=== PATIENT | female | born 1950 | race Caucasian/White ===

== ENCOUNTER → 2023-10-15 13:57 | Outpatient (REF) | payer MEDICARE, OTHER, SELFPAY | LOC: RAD 13:57 | PROVIDERS: ATTENDING PHYSICIAN Family Medicine | DX: E78.00 Pure hypercholesterolemia, unspecified (principal) | CPT/HCPCS: 75571 ==

== ENCOUNTER → 2023-12-28 13:10 | Outpatient (REF) | payer MEDICARE, OTHER, SELFPAY | LOC: RAD 13:10 | PROVIDERS: ATTENDING PHYSICIAN Family Medicine | DX: R09.81 Nasal congestion (principal); I77.810 Thoracic aortic ectasia | CPT/HCPCS: 70487; 71275; Q9967 ==

== ENCOUNTER → 2024-01-10 11:00 | Outpatient (REF) | payer MEDICARE, OTHER, SELFPAY | LOC: CLAB 11:00 | PROVIDERS: ATTENDING PHYSICIAN Otolaryngology | DX: J32.3 Chronic sphenoidal sinusitis (principal) | CPT/HCPCS: 87070; 87205 ==

== ENCOUNTER → 2024-01-26 16:54 | Outpatient (REF) | payer MEDICARE, OTHER, SELFPAY | LOC: RCS 16:54 | PROVIDERS: ATTENDING PHYSICIAN Family Medicine | DX: I77.810 Thoracic aortic ectasia (principal); R01.1 Cardiac murmur, unspecified | CPT/HCPCS: 93306 ==

== ENCOUNTER → 2024-02-18 12:05 | Outpatient (REF) | payer MEDICARE, OTHER, SELFPAY ==
[2024-02-18 12:45] LABS: % Basophils 0.5 % (0-2); % Eosinophils 5.9 % (0-6); % Immature Granulocytes 0.1 % (0-0.5); % Lymphocytes 12.4 % (20.5-51.1); % Monocytes 6.3 % (1.7-9.3); % Neutrophils 74.8 % (42.2-75.2); Absolute Eosinophils 0.5 10^3/uL (0-0.7); Absolute Monocytes 0.5 10^3/uL (0.1-0.6); Absolute Neutrophils 5.8 10^3/uL (1.4-6.5); Hematocrit 38.2 % (37.0-47.0); Hemoglobin 13.2 g/dL (12.0-16.0); Mean Corp Hgb Conc. 34.6 g/dL (33.0-37.0); Mean Corpuscular Hgb 29.9 pg (27.0-31.0); Mean Corpuscular Volume 86.4 fL (81.0-99.0); Mean Platelet Volume 10.7 fL (7.4-10.4); Nucleated Red Blood Cells % 0 %; Platelet Count 364 10^3/uL (130-400); Red Blood Cell Count 4.42 10^6/uL (4.20-5.40); White Blood Cell Count 7.8 10^3/uL (4.8-10.8)
[2024-02-18 14:20] LABS: ALT (SGPT) 59 U/L (0-35); AST (SGOT) 44 U/L (14-36); Albumin 4.1 g/dl (3.5-5.0); Alkaline Phosphatase 117 U/L (38-126); Blood Urea Nitrogen 19 mg/dl (7-17); Calcium 9.7 mg/dl (8.4-10.2); Carbon Dioxide 28 mmol/L (22-30); Chloride 92 mmol/L (98-107); Glucose 96 mg/dl (70-99); Potassium 4.4 mmol/L (3.5-5.1); Sodium 133 mmol/L (135-145); Total Bilirubin 0.6 mg/dl (0.2-1.3); Total Protein 7.7 g/dl (6.3-8.2); eGFR > 60.00
== END ==
LOC: REG 12:05
PROVIDERS: ATTENDING PHYSICIAN Family Medicine
DX: J32.3 Chronic sphenoidal sinusitis (principal); R11.0 Nausea; M79.10 Myalgia, unspecified site
CPT/HCPCS: 36415; 80053; 85025

== ENCOUNTER → 2024-02-29 08:28 | Outpatient (REF) | payer MEDICARE, OTHER, SELFPAY ==
[2024-02-29 12:06] LABS: ALT (SGPT) 36 U/L (0-35); AST (SGOT) 36 U/L (14-36); Albumin 4.5 g/dl (3.5-5.0); Alkaline Phosphatase 90 U/L (38-126); Blood Urea Nitrogen 22 mg/dl (7-17); Calcium 9.4 mg/dl (8.4-10.2); Carbon Dioxide 29 mmol/L (22-30); Chloride 93 mmol/L (98-107); Glucose 83 mg/dl (70-99); HDL Cholesterol 95 mg/dl; LDL Cholesterol, Calculated 88 mg/dl; Potassium 5.1 mmol/L (3.5-5.1); Sodium 134 mmol/L (135-145); Total Bilirubin 1.2 mg/dl (0.2-1.3); Total Cholesterol 198 mg/dl (50-199); Total Protein 8.2 g/dl (6.3-8.2); Triglyceride 77 mg/dl (10-149); Very Low Density Lipoprotein 15 mg/dl (0-30); eGFR > 60.00
== END ==
LOC: REG 08:28
PROVIDERS: ATTENDING PHYSICIAN Family Medicine
DX: E78.00 Pure hypercholesterolemia, unspecified (principal); R74.8 Abnormal levels of other serum enzymes
CPT/HCPCS: 36415; 80053; 80061

== ENCOUNTER → 2024-06-27 14:50 | Outpatient (REF) | payer MEDICARE, OTHER, SELFPAY | LOC: WDC 14:50 | PROVIDERS: ATTENDING PHYSICIAN Family Medicine | DX: Z12.31 Encounter for screening mammogram for malignant neoplasm of breast (principal) | CPT/HCPCS: 77063; 77067 ==

== ENCOUNTER 2024-08-10 11:03 | Emergency (ER) | payer MEDICARE, OTHER, SELFPAY ==
[2024-08-10 11:07] VITALS: BP 191/108
[2024-08-10 13:00] VITALS: BP 187/88
--- NOTE | 2024-08-10 13:10 | ED.GENMED ---
History of Present Illness
General
Chief Complaint: Extremity Pain (non-traumatic)
Source: patient
Exam Limitations: none
Time Seen by Provider: 08/10/24 12:19
Nursing documentation reviewed up to this point in time: agreed with
History of Present Illness
History of Present Illness:
Patient is a 74 old female who presents to the ER complaining of stiffness of the left knee. She had this knee replaced [address] Hadley .
She reports for the past several weeks/2 months she has had some stiffness of the left knee and cracking when she gets up from a chair however today discomfort was more increased. She also has had some left calf discomfort yesterday. Denies any
obvious swelling. denies redness /fever/chills.
Past History
Past History
ED Past Medical History: HTN
Social History
Tobacco: Non-smoker
Alcohol: None
Drug: None
Review of Systems
Review of Systems
Allergies reviewed?: Yes
All Other Systems: ROS reviewed and negative except as documented in HPI and ROS
Musculoskeletal: Reports other (left knee pain )
Skin: Reports no symptoms
Neurological: Reports no symptoms
Psychiatric: Reports no symptoms
Phy Exam
General Physical Exam
General Presentation: no apparent distress
General age: appears stated age
General Skin: warm and dry
General Habitus: normal
General Mental: alert
General Hydration: appears well hydrated
Neurological Exam
Neurological Exam: alert and oriented x3
Musculoskeletal Exam
Musculoskeletal Exam: other (lle with strong pulses no obvious swelling /erythema to knee or leg full ROM; no calf tenderness or swelling no erythema to calf + strong pulses compartments soft )
Skin Exam
Skin Exam: normal color and warm/dry
Psychiatric Exam
Psychiatric Exam: normal mood/affect
Course
Orders/Labs/Results
Orders:
Orders
08/10/24 11:10
Knee, Left 4 or More Views [CR Knee - Left 4 Or More View*] Urgent
Comment:
Reason For Exam: pain
08/10/24 13:13
Acetaminophen [Tylenol] 650 mg PO NOW STA
Venous Doppler Lwr Ext Left [US Periph Venous LOWER Ext LT] Urgent
Comment:
Reason For Exam: calf pain
Vital Signs
Initial and Last Documented VS:
Initial Vital Signs
Temp Pulse Resp BP Pulse Ox
98.2 F 75 18 191/108 98
08/10/24 11:07 08/10/24 11:07 08/10/24 11:07 08/10/24 11:07 08/10/24 11:07
Last Documented Vital Signs
Temp Pulse Resp BP Pulse Ox
99.5 F 80 20 157/100 97
08/10/24 15:00 08/10/24 15:00 08/10/24 15:00 08/10/24 15:00 08/10/24 15:00
MDM/Problems Addressed
Differential Diagnosis Includes:
less likely DVT knee sprain/strain
MDM/Problems Addressed:
No evidence of infection on exam strong pulses patient complains of increasing stiffness for the past 1- 2 months in the knee mild left calf discomfort today. no fevers /no redness on exam no c/o of fevers at home. X-ray is negative for fracture
there is small to moderate joint effusion no evidence of infection on exam we will check ultrasound and if negative plan to DC with Ortho follow-up.
Ultrasound is negative for DVT of the left extremity there is a hypoechoic collection left calf musculature likely complex cystic likely representing hematoma. No acute concerning findings on exam will DC with outpatient felt her orthopedic
physician discussed ice and alternating ibuprofen and Tylenol. Patient is bearing weight using a cane to assist.
*Radiology
Radiology exam reviewed: radiology read reviewed
*Pulse Oximetry
Patient hypoxic: no
*Critical Care Note
Total Time (30-74mins, 75-104mins- exclusive of procedures): Not Applicable
ED Attending Note
-
Portions of this chart may have been created with voice recognition software.� Occasional wrong word or��sound alike� substitutions may have occurred due to the inherent limitations of voice recognition software.
Discharge Plan
Departure
Patient Disposition: Home (Routine Discharge)
Date of Disposition: 08/10/24
Time of Disposition: 15:33
Patient with high blood pressure during this ER visit?: Yes
Condition: Fair
Covid-19: Not Applicable
Discharge Problem:
knee pain
Instructions: Knee pain - ED discharge instructions, BLOOD PRESSURE
Prescriptions:
No Action
citalopram 10 MG tablet
15 mg PO DAILY
kxdbmxnugk-eapkaibob-ahbjrcsoq [Exforge HCT] 1 EACH tablet
1 ea PO DAILY
vancomycin HCl in water 1.25 GM/12.5 ML solution
1.25 gm IV Q12H Qty: 14 0RF
ceftriaxone 2,000 MG/20 ML recon soln
2,000 mg IV DAILY Qty: 6 0RF
metronidazole 500 MG tablet
500 mg PO TID Qty: 18 0RF
Referrals:
Donato Hadley MD [Non-Admitting Privileges] -
Roseline Lauren MD [Family Provider] -
Activity Restrictions/Additional Instructions:
As discussed please keep elevated as much as possible.
You may take ibuprofen for discomfort alternate with Tylenol.
Please follow-up with your orthopedic doctor as soon as possible and return if any worsening of symptoms.
Interventions
Interventions:
*Risk Screen - Suicide Last Done: 08/10/24 11:07
*General Assessment Last Done: 08/10/24 11:07
*Neglect/Abuse Screening Last Done: 08/10/24 11:07
*ED- Fall Risk Assessment Last Done: 08/10/24 11:07
*ED COVID-19 Vaccine History Last Done: 08/10/24 11:07
*Nursing Disposition Last Done: 08/10/24 15:45
ED-Skin Assessment Last Done: 08/10/24 13:00
ED-Peripheral Vascular Assessment Last Done: 08/10/24 13:00
ED-Musculoskeletal Assessment Last Done: 08/10/24 13:00
Discharge Date and Time
Discharge Date/Time: 08/10/24 15:46
Print Language: [place]
[2024-08-10] MEDS: TYLENOL 650 MG PO (13:20)
[2024-08-10 15:00] VITALS: BP 157/100
[2024-08-10 15:33] VITALS: BMI 32.2
== END 2024-08-10 15:46 | disposition home or self-care (01) ==
LOC: EMR 11:03
PROVIDERS: EMERGENCY PHYSICIAN Emergency Medicine; FAMILY PHYSICIAN Family Medicine
DX: M25.562 Pain in left knee (principal); M79.662 Pain in left lower leg; I10 Essential (primary) hypertension; Z96.652 Presence of left artificial knee joint
CPT/HCPCS: 99284; 73564; 93971

== ENCOUNTER → 2024-09-15 09:01 | Outpatient (REF) | payer MEDICARE, OTHER, SELFPAY ==
[2024-09-15 09:53] LABS: % Eosinophils 1.7 % (0-6); % Immature Granulocytes 0.1 % (0-0.5); % Lymphocytes 27.3 % (20.5-51.1); % Monocytes 14.4 % (1.7-9.3); % Neutrophils 55.5 % (42.2-75.2); Absolute Basophils 0.1 10^3/uL (0-0.2); Absolute Eosinophils 0.1 10^3/uL (0-0.7); Absolute Lymphocytes 1.9 10^3/uL (1.2-3.4); Absolute Neutrophils 3.8 10^3/uL (1.4-6.5); Hematocrit 37.2 % (37.0-47.0); Hemoglobin 12.8 g/dL (12.0-16.0); Mean Corp Hgb Conc. 34.4 g/dL (33.0-37.0); Mean Corpuscular Hgb 30.4 pg (27.0-31.0); Mean Corpuscular Volume 88.4 fL (81.0-99.0); Mean Platelet Volume 10.2 fL (7.4-10.4); Nucleated Red Blood Cells % 0 %; Platelet Count 368 10^3/uL (130-400); Red Blood Cell Count 4.21 10^6/uL (4.20-5.40); Red Cell Dist. Width 14.5 % (11.5-14.5); White Blood Cell Count 6.9 10^3/uL (4.8-10.8)
[2024-09-15 10:23] LABS: ALT (SGPT) 28 U/L (0-35); AST (SGOT) 33 U/L (14-36); Albumin 4.4 g/dl (3.5-5.0); Alkaline Phosphatase 88 U/L (38-126); Blood Urea Nitrogen 20 mg/dl (7-17); Calcium 9.8 mg/dl (8.4-10.2); Carbon Dioxide 24 mmol/L (22-30); Chloride 104 mmol/L (98-107); Glucose 90 mg/dl (70-99); Potassium 4.5 mmol/L (3.5-5.1); Sodium 138 mmol/L (135-145); Total Bilirubin 0.8 mg/dl (0.2-1.3); Total Protein 7.9 g/dl (6.3-8.2); eGFR > 60.00
[2024-09-15 10:51] LABS: TSH Reflex To Free T4 0.78 uIU/ml (0.47-4.68)
== END ==
LOC: REG 09:01
PROVIDERS: ATTENDING PHYSICIAN Family Medicine
DX: I10 Essential (primary) hypertension (principal); E78.00 Pure hypercholesterolemia, unspecified
CPT/HCPCS: 36415; 80053; 84443; 85025

== ENCOUNTER → 2024-12-14 06:34 | Outpatient (REF) | payer MEDICARE, OTHER, SELFPAY | LOC: MRI 3T 06:34 | PROVIDERS: ATTENDING PHYSICIAN Orthopaedic Surgery Sports Medicine | DX: M17.12 Unilateral primary osteoarthritis, left knee (principal) | CPT/HCPCS: 73721 ==

== ENCOUNTER → 2024-12-14 10:45 | Outpatient (REF) | payer MEDICARE, OTHER, SELFPAY | LOC: CLAB 10:45 | PROVIDERS: ATTENDING PHYSICIAN Otolaryngology | DX: J32.3 Chronic sphenoidal sinusitis (principal) | CPT/HCPCS: 87070; 87205 ==

== ENCOUNTER → 2024-12-20 08:58 | Outpatient (REF) | payer MEDICARE, OTHER, SELFPAY | LOC: HWRAD 08:58 | PROVIDERS: ATTENDING PHYSICIAN Otolaryngology; FAMILY PHYSICIAN Family Medicine | DX: J32.3 Chronic sphenoidal sinusitis (principal) | CPT/HCPCS: 70486 ==